=== PATIENT | female | born 1945 | race Caucasian/White ===

== ENCOUNTER 2020-06-02 09:35 | Emergency (ER) | payer BC, OTHER ==
[~2020-06-02] VITALS: Ht 157.5 cm; Wt 59.0 kg
--- NOTE | 2020-06-02 09:42 | NUR ---
[id number], c/o left wrist pain with deformity s/p fall,-ko fentanyl 50mcg given on scene. Patient a/ox4, breathing even and unlabored, no sob noted, needs attended. IV Line on RAC g18 patent and flushes.
[2020-06-02] MEDS ORDERED: ONDANSETRON HCL/PF 4 MG/2 ML VIAL ONE ×2 (09:58→18:23)
[2020-06-02] MEDS ORDERED: LIDOCAINE HCL/MPF 1% 30 ML VIAL IJ ONE (09:58)
[2020-06-02] MEDS ORDERED: LIDOCAINE 1% INJ 50 ML MDV IJ ONE (10:00)
[2020-06-02] MEDS ORDERED: ONDANSETRON HCL/PF 4 MG/2 ML VIAL IV ONE ×2 (10:00→18:30)
--- NOTE | 2020-06-02 11:02 | NUR ---
DR. SILVER AT BEDSIDE FOR NERVE BLOCK.
[2020-06-02] MEDS ORDERED: TDAP [DIPH/PERTUSSIS/TET] 0.5 ML VIAL IM ONE ×2 (11:27→11:30)
[2020-06-02] MEDS ORDERED: MORPHINE SULFATE INJ 4 MG/ML DISP.SYRIN ONE ×2 (11:27→15:55)
[2020-06-02] MEDS ORDERED: CEFAZOLIN 2 GM in IV D5W 100 ML IV ONE (11:30)
[2020-06-02] MEDS ORDERED: MORPHINE SULFATE INJ 2 MG/ML DISP.SYRIN IV ONE ×2 (11:30→16:00)
--- NOTE | 2020-06-02 11:30 | NUR ---
DR. SILVER WAS ABLE TO REDUCE THE LEFT WRIST AND SPLINT APPLIED.
[2020-06-02] MEDS ORDERED: OMEP20TA20 PO (12:07)
[2020-06-02] MEDS ORDERED: SUMA100T16 PO (12:07)
--- NOTE | 2020-06-02 12:23 | NUR ---
CLINICALS GIVEN TO ABBI SCHNEIDER. [phone]
[2020-06-02 12:27] LABS: BASOPHILS % (AUTO) 0.3 % (0.0-2.0); EOSINOPHILS % (AUTO) 0.2 % (0.0-6.0); HEMATOCRIT 38 % (33-45); HEMOGLOBIN 12.5 g/dL (11.5-14.8); LYMPHOCYTES # (AUTO) 1.1 /CMM (0.8-4.8); LYMPHOCYTES % (AUTO) 11.3 % (20.0-44.0); MEAN CORPUSCULAR HGB CONC 33 g/dl (31.0-36.0); MEAN CORPUSCULAR VOLUME 91 fL (82-100); MONOCYTES # (AUTO) 0.5 /CMM (0.1-1.30); MONOCYTES % (AUTO) 4.8 % (2.0-12.0); NEUTROPHILS # (AUTO) 8.2 /CMM (1.8-8.9); NEUTROPHILS % (AUTO) 83.4 % (43.0-81.0); PLATELET COUNT (AUTO) 264 /CMM (150-450); WHITE BLOOD COUNT (AUTO) 9.8 K/uL (4.3-11.0)
[2020-06-02 12:32] LABS: CALCIUM, SERUM 8.5 mg/dL (8.5-10.1); CREATININE 0.6 mg/dL (0.6-1.3); POTASSIUM 3.8 mmol/L (3.5-5.1)
--- NOTE | 2020-06-02 15:51 | NUR ---
RECEIVED TRANSFER INFO: PATIENT ACCEPTED AT [facility] TO ROOM C - [address] PHONE# FOR REPORT [phone]
--- NOTE | 2020-06-02 16:12 | NUR ---
ETA 1830 PER ADMITTING
--- NOTE | 2020-06-02 16:30 | NUR ---
REPORT GIVEN TO KALE WALTON AT [facility].
--- NOTE | 2020-06-02 19:08 | NUR ---
[facility] ETA 194
--- NOTE | 2020-06-02 19:09 | NUR ---
TARAH [phone]
--- NOTE | 2020-06-02 19:53 | NUR ---
PT TRANSPORTED TO [facility], PT LEFT IN STABLE CONDITION. VSS, REPORT GIVEN TO AMBULANCE STAFF.
[2020-06-02 19:54] VITALS: BP 161/101
== END 2020-06-02 19:53 | disposition short-term general hospital (02) ==
LOC: ER 09:41
DX: S52.572A Other intraarticular fracture of lower end of left radius, initial encounter for closed fracture (principal); S52.692A Other fracture of lower end of left ulna, initial encounter for closed fracture; W01.0XXA Fall on same level from slipping, tripping and stumbling without subsequent striking against object, initial encounter; Y93.01 Activity, walking, marching and hiking; Y92.480 Sidewalk as the place of occurrence of the external cause; Z88.2 Allergy status to sulfonamides; K21.9 Gastro-esophageal reflux disease without esophagitis; Z85.89 Personal history of malignant neoplasm of other organs and systems; M81.0 Age-related osteoporosis without current pathological fracture; Z20.828 Contact with and (suspected) exposure to other viral communicable diseases
CPT/HCPCS: 25605; 36415; 71045; 73100; 73110; 80048; 85025; 85610; 86850; 87081; 87426; 90471; 90715; 93005; 96365; 96375; 96376; 99285; C9803; J0690; J2270 ×2; J2405 ×2; J3490; J7060

== ENCOUNTER 2022-01-11 16:11 | Emergency (ER) | payer OTHER ==
[~2022-01-11] VITALS: Ht 157.5 cm; Wt 56.7 kg
[~2022-01-11 16:11] MED LIST: OMEP20TA20 PO; SUMA100T16 PO
[2022-01-11 16:51] VITALS: BP 119/66
[2022-01-11] MEDS ORDERED: ONDA4TAB5 PO (17:11)
[2022-01-11] MEDS ORDERED: P-EP-92 PO (17:11)
== END 2022-01-11 17:19 | disposition home or self-care (01) ==
LOC: ER 16:24
DX: J32.9 Chronic sinusitis, unspecified (principal); K21.9 Gastro-esophageal reflux disease without esophagitis; Z87.39 Personal history of other diseases of the musculoskeletal system and connective tissue; Z88.2 Allergy status to sulfonamides; Z79.899 Other long term (current) drug therapy

== ENCOUNTER 2022-01-18 09:49 | Emergency (ER) | payer OTHER ==
[~2022-01-18] VITALS: Ht 157.5 cm; Wt 49.4 kg
[~2022-01-18 09:49] MED LIST changes: +ONDA4TAB5 PO; +P-EP-92 PO
--- NOTE | 2022-01-18 10:18 | NUR ---
DR ASHLEY AT BEDSIDE FOR EVAL.
--- NOTE | 2022-01-18 10:30 | NUR ---
PT TO RADIOLOGY FOR EAD CT SCAN VIA [facility].
[2022-01-18 11:22] VITALS: BP 151/96
--- NOTE | 2022-01-18 11:22 | NUR ---
Patient discharged to home in stable condition. Written and verbal after care instructions given. Patient verbalizes understanding of instruction.
== END 2022-01-18 11:23 | disposition home or self-care (01) ==
LOC: ER 10:10
DX: R51.9 Headache, unspecified (principal); K21.9 Gastro-esophageal reflux disease without esophagitis; M81.0 Age-related osteoporosis without current pathological fracture; Z88.2 Allergy status to sulfonamides; Z98.890 Other specified postprocedural states; Z79.899 Other long term (current) drug therapy
CPT/HCPCS: 70450-TC